=== PATIENT | female | born 1980 | race African-American/Black ===

== ENCOUNTER 2018-11-17 12:00 | Emergency (ER) | payer OTHER, MEDICARE ==
[2018-11-17 12:08] VITALS: BP 123/74
[2018-11-17] MEDS ORDERED: LIDOCAINE 5% (700 MG) TRANSDERMAL ADH..PATCH TP ONE (12:29)
[2018-11-17] MEDS ORDERED: CYCLOBENZAPRINE HCL 10 MG TABLET PO ONE (12:31)
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
== END 2018-11-17 12:53 | disposition home or self-care (01) ==
LOC: ER 12:00
DX: S16.1XXA Strain of muscle, fascia and tendon at neck level, initial encounter (principal); V43.52XA Car driver injured in collision with other type car in traffic accident, initial encounter
CPT/HCPCS: 99283